=== PATIENT | female | born 1990 | race Two or more races ===

== ENCOUNTER 2018-12-18 05:15 | Emergency (ER) | payer SELFPAY ==
[2018-12-18] MEDS ORDERED: AMOXICILLIN TRIHYDRATE 500 MG CAPSULE PO ONE (08:38)
[2018-12-18] MEDS ORDERED: NEOMY SULF/POLYMYX B SULF/HC OTIC SUSP 10 ML AD ONE (08:39)
[2018-12-18] MEDS ORDERED: HYDROCODONE/ACETAMINOPHEN 5-325 MG TABLET PO ONE (08:39)
[2018-12-18 09:00] VITALS: BP 122/78
--- NOTE | 2018-12-18 09:16 | ER Document Report ---
Entered by BHUMI PARTIDA SCRIBE 12/18/18 0847 Acting as scribe for:ANNIA EAST MD ED General - General Chief Complaint: Drainage from Ear Stated Complaint: EAR PAIN AND DISCHARGE Time Seen by Provider: 12/18/18 08:30 Primary Care Provider: ANDREY LYLES CNM [NO LOCAL MD] - 12/21/18 Mode of Arrival: Ambulatory Information source: Patient Notes: Patient is a 28-year-old female, approximately 8 weeks , presents emergency department complaining of right ear pain yesterday morning. Patient states the pain began as a pulsing, throbbing sensation that worsened throughout the day. She states around 0000 this morning, she felt a pop in her right ear when she yawned. Around 0300, she noted bloody drainage. She states the pain is exacerbated with coughing. She denies using any Q-tips but reports using a cotton ball to prevent air going into her right ear. Patient is on vitamins and is following up with the health department. TRAVEL OUTSIDE OF THE [place] IN LAST 30 DAYS: No - Related Data Allergies/Adverse Reactions: No Known Allergies Allergy (Verified 12/18/18 08:57) Past Medical History - General Information source: Patient - Social History Smoking Status: Never Smoker Cigarette use (# per day): No Chew tobacco use (# tins/day): No Smoking Education Provided: No Frequency of alcohol use: None Drug Abuse: None Occupation: unemployed Lives with: Spouse/Significant other Family History: Reviewed & Not Pertinent - Medical History Medical History: Negative Surgical Hx: Negative Review of Systems - Review of Systems Constitutional: No symptoms reported EENT: See HPI, Ear pain, Ear discharge Cardiovascular: No symptoms reported Respiratory: No symptoms reported Gastrointestinal: No symptoms reported Genitourinary: No symptoms reported Female Genitourinary: - 8 weeks on vitamins with iron, followed at the health department Musculoskeletal: No symptoms reported Skin: No symptoms reported Hematologic/Lymphatic: No symptoms reported Neurological/Psychological: No symptoms reported -: Yes All other systems reviewed and negative Physical Exam - Vital signs Vitals: Temp Pulse Resp BP Pulse Ox 98 F 88 16 112/63 97 12/18/18 05:16 12/18/18 05:16 12/18/18 05:16 12/18/18 05:16 12/18/18 05:16 - Notes Notes: GENERAL: Alert, interacts well. No acute distress. HEAD: Normocephalic, atraumatic. EYES: Pupils equal, round, and reactive to light. Extraocular movements intact. ENT: Oral mucosa moist, tongue midline. Nares patent, no nasal septal hematoma, Left TM and ear canal appear normal. There is dry crusting on the right outer ear and in the canal which also appears wet. Right TM is dusky in appearance, bulging, there appears to be blood in the TM itself. Tender to manipulate the right external ear. NECK: Full range of motion. Supple. Trachea midline. LUNGS: Clear to auscultation bilaterally, no wheezes, rales, or rhonchi. No respiratory distress. HEART: Regular rate and rhythm. No murmurs, gallops, or rubs. ABDOMEN: Soft, non-tender. Non-distended. Bowel sounds present in all 4 quadrants. No guarding, rigidity, or rebound. EXTREMITIES: Moves all 4 extremities spontaneously. NEUROLOGICAL: Alert and oriented x3. Normal speech. PSYCH: Normal affect, normal mood. SKIN: Warm, dry, normal turgor. No rashes or lesions noted. Course - Vital Signs Vital signs: Temp Pulse Resp BP Pulse Ox 98.9 F 85 18 122/78 99 12/18/18 08:59 12/18/18 08:59 12/18/18 08:59 12/18/18 08:59 12/18/18 08:59 Discharge - Discharge Clinical Impression: Right otitis media with spontaneous rupture of eardrum Condition: Stable Disposition: HOME, SELF-CARE Additional Instructions: Otitis Media You have a middle ear infection (otitis media). This is usually a complication of a cold or sore throat. The middle ear cavity becomes filled with infection. Pressure and stretching of the ear drum cause pain. Antibiotics are required. A 10 day course is usually prescribed. A decongestant may be recommended if you have a "runny nose." You may need anesthetic drops or other pain medication. A follow-up exam may be recommended to make sure the infection has completely cleared. If the ear begins to drain, it means the ear drum has ruptured. This will usually heal spontaneously. However, it means you should keep the ear dry until re-examined by a doctor. Call the physician or return for examination at once if there is severe headache, stiff neck, confusion, increasing fever, or dizziness. You should improve significantly within two days. If you're not better, call the doctor. Your history and physical exam suggest that you have a right middle ear infection called otitis media. It also appears that the pressure buildup because the tympanic membrane or eardrum, to pop a small hole in it allowing some of the fluid to run out during the night. Take the medications as prescribed. Put 4 drops of the eardrops you were given in your right ear every [address] hours, then [address] a cotton ball in the ear to help keep the drops in. Take an uifv-vfx-lkoekjr medication such as Sudafed, Claritin, or Caitie to help with the congestion in the ear. Follow-up with a primary care provider on Friday to recheck your ear. RETURN TO THE EMERGENCY ROOM IF ANY NEW OR WORSENING SYMPTOMS. Prescriptions: Amoxicillin Trihydrate [Amoxil 500 mg Capsule] 500 mg PO TID #30 cap Hydrocodone/Acetaminophen [[place] 5-325 mg Tablet] 1 tab PO Q4 PRN #10 tablet PRN Reason: Referrals: ANDREY LYLES CNM [NO LOCAL MD] - 12/21/18 Scribe Attestation: 12/18/18 08:40 I personally performed the services described in the documentation, reviewed and edited the documentation which was dictated to the scribe in my presence, and it accurately records my words and actions. I personally performed the services described in the documentation, reviewed and edited the documentation which was dictated to the scribe in my presence, and it accurately records my words and actions.
== END 2018-12-18 09:00 | disposition home or self-care (01) ==
LOC: ER 05:15
DX: O26.891 Other specified pregnancy related conditions, first trimester (principal); H66.90 Otitis media, unspecified, unspecified ear; H72.91 Unspecified perforation of tympanic membrane, right ear; Z3A.08 8 weeks gestation of pregnancy; Z79.899 Other long term (current) drug therapy
CPT/HCPCS: 99282; J3490

== ENCOUNTER → 2018-12-23 | Outpatient (CLI) | payer SELFPAY ==
--- NOTE | 2018-12-23 13:39 | RADIOLOGY REPORT (SQ) ---
EXAM DESCRIPTION: U/S [id number] TRNABD 1GES W/ODOP COMPLETED DATE/TIME: 12/23/2018 1:22 pm REASON FOR STUDY: Z34.81 ENCOUNTER FOR SUPRVSN OF NORMAL , FIRST TRIMESTER Z34.81 ENCOUNTE R FOR SUPRVSN OF NORMAL , FIRST TRIM COMPARISON: None. TECHNIQUE: Transvaginal static and realtime grayscale images acquired of the pelvis. Additional demetrius cted spectral and color Doppler images recorded. All images stored on PACs. bHCG: Not available. CLINICAL DATES: 8 week 5 day LIMITATIONS: None. FINDINGS: FETUS: Single Living intrauterine . ULTRASOUND EGA: 7 week 2 day ULTRASOUND MALACHI: 08/09/2019 EFW: Not applicable less than 20 weeks. CRL: 1.17 cm. FHR: 157 beats per minute. SURVEY: Too early to assess. AMNIOTIC FLUID: Adequate amount. PLACENTA: Not yet developed due to early gestation. SUBCHORIONIC BLEED: No. SIZE OF BLEED: Not applicable. UTERUS: No masses. No anomalies. CERVICAL LENGTH: 2.8 cm. Closed. RIGHT ADNEXA: Ovary not identified due to poor acoustical window. No adnexal free fluid. No adnexal masses. LEFT ADNEXA: Ovary not identified due to poor acoustical window. No adnexal free fluid. No adnexal masses. FREE FLUID: None. OTHER: No other significant finding. IMPRESSION: LIVING INTRAUTERINE . EGA 7 week 2 day Trimester of : First - 0 to 13 weeks. TECHNICAL DOCUMENTATION: JOB ID: [id number] [employer]- All Rights Reserved Reading location - IP/workstation name: [email or web address]
== END ==
LOC: RAD 12:26
PROVIDERS: ATTEND Midwife
DX: Z34.81 Encounter for supervision of other normal pregnancy, first trimester (principal)
CPT/HCPCS: 76801

== ENCOUNTER → 2019-03-31 | Outpatient (CLI) | payer SELFPAY ==
--- NOTE | 2019-03-31 14:30 | RADIOLOGY REPORT (SQ) ---
EXAM DESCRIPTION: U/S OB 14+ TRNABD 1GES W/O DOP COMPLETED DATE/TIME: 03/31/2019 2:05 pm REASON FOR STUDY: Z34.82 ENCOUNTER FOR SUPRVSN OF NORMAL , SECOND TRIMESTER Z34.82 ENCOUNT ER FOR SUPRVSN OF NORMAL , SECOND TRI COMPARISON: 03/18/2019 TECHNIQUE: Static and Dynamic grayscale imaging performed of gravid uterus using transabdominal appr oach. Additional selected color Doppler and spectral images recorded. All stored on PACS. LIMITATIONS: None. FINDINGS: FETUSES SEEN:1 EGA: 21 weeks and 6 days Calculated using BPD,FL,HC,AC documented on images. Concordant with clinica l dates. MALACHI: 08/05/2019 EFW: 417 +/- 70 grams ANAIS: Adequate fluid volume. PLACENTA: Anterior. PRESENTATION: Breech. ANATOMY: HEART RATE: 141 beats per minute. FOUR CHAMBER HEART: Visualized. THREE VESSEL CORD: Yes. CORD INSERTION: Visualized. KIDNEYS AND BLADDER: Visualized. Appear normal. STOMACH: Visualized. Appears normal. SPINE: Visualize. Appears normal. CERVICAL LENGTH: 3.4 cm Closed. OTHER: No other finding. IMPRESSION: LIVING INTRAUTERINE . ESTIMATED GESTATIONAL AGE 21 weeks and 2 days based on LMP. NO VISUALIZED ANOMALIES. Trimester of : Second trimester - 13 weeks 1 day to 27 weeks 6 days. TECHNICAL DOCUMENTATION: JOB ID: [id number] [employer]- All Rights Reserved Reading location - IP/workstation name: [email or web address]
== END ==
LOC: RAD 12:55
PROVIDERS: ATTEND Midwife
DX: Z34.82 Encounter for supervision of other normal pregnancy, second trimester (principal)
CPT/HCPCS: 76805

== ENCOUNTER 2019-07-22 00:33 | Outpatient (CLI) | payer SELFPAY ==
[2019-07-22 01:13] LABS: APPEARANCE,URINE CLEAR; BILIRUBIN,URINE NEGATIVE (NEGATIVE); COLOR,URINE STRAW; GLUCOSE, URINE NEGATIVE (NEGATIVE); KETONES,URINE NEGATIVE (NEGATIVE); LEUKOCYTE ESTERASE,URINE NEGATIVE (NEGATIVE); NITRITE,URINE NEGATIVE (NEGATIVE); PROTEIN,URINE NEGATIVE (NEGATIVE); URINE SPECIFIC GRAVITY 1.011; UROBILINOGEN,URINE NEGATIVE mg/dL (<2.0)
[2019-07-22 01:33] LABS: URINE AMPHETAMINES SCREEN NEGATIVE; URINE BARBITURATES SCREEN NEGATIVE; URINE BENZODIAZEPINES SCREEN NEGATIVE; URINE COCAINE SCREEN NEGATIVE; URINE MARIJUANA (THC) SCREEN NEGATIVE; URINE METHADONE SCREEN NEGATIVE; URINE PHENCYCLIDINE SCREEN NEGATIVE
--- NOTE | 2019-07-22 01:57 | Non Stress Test Report ---
Non Stress Test Datetime Report Generated by CPN: 07/22/2019 01:57 DEMOGRAPHIC EGA NST: 38.6 INDICATION Indication for Study (NST) Other: lc MONITORING Monitor Explained: Monitor Explained; Test Explained; Patient Verbalized Understanding Time on Monitor: 07/22/2019 00:53 Time off Monitor: 07/22/2019 01:13 NST Duration: 20 NST INTERVENTIONS NST Interventions: PO Hydration; Reposition Patient Physician Notified NST: Dr Manrique BABY A: [id number] BABY A Movement : Present Contraction Frequency : 8 FHR Baseline : 135 Accelerations : 15X15 Decelerations : None Variability : Moderate 6-25bpm NST Review: Meets Criteria for Reactive NST NST Review and Verified By : JNiebuhr,RN NST Results: Reactive NST REPORT Report Trigger: Send Report
== END 2019-07-22 01:46 | disposition home or self-care (01) ==
LOC: LC 00:33
PROVIDERS: ATTEND Obstetrics & Gynecology
PROC: 4A1HXCZ Monitoring of Products of Conception, Cardiac Rate, External Approach (ICD-10-PCS; principal; 2019-07-22)
DX: O47.1 False labor at or after 37 completed weeks of gestation (principal); Z3A.38 38 weeks gestation of pregnancy
CPT/HCPCS: 80307; 81005

== ENCOUNTER 2019-08-04 23:46 | Outpatient (CLI) | payer SELFPAY ==
[2019-08-05 00:14] LABS: APPEARANCE,URINE SLIGHTLY-CLOUDY; BILIRUBIN,URINE NEGATIVE (NEGATIVE); COLOR,URINE YELLOW; GLUCOSE, URINE NEGATIVE (NEGATIVE); KETONES,URINE NEGATIVE (NEGATIVE); LEUKOCYTE ESTERASE,URINE LARGE (NEGATIVE); NITRITE,URINE NEGATIVE (NEGATIVE); PROTEIN,URINE 30 mg/dL (NEGATIVE); URINE SPECIFIC GRAVITY 1.013; UROBILINOGEN,URINE NEGATIVE mg/dL (<2.0)
[2019-08-05 00:28] LABS: URINE AMPHETAMINES SCREEN NEGATIVE; URINE BARBITURATES SCREEN NEGATIVE; URINE BENZODIAZEPINES SCREEN NEGATIVE; URINE COCAINE SCREEN NEGATIVE; URINE MARIJUANA (THC) SCREEN NEGATIVE; URINE METHADONE SCREEN NEGATIVE; URINE PHENCYCLIDINE SCREEN NEGATIVE
--- NOTE | 2019-08-05 01:54 | Non Stress Test Report ---
Non Stress Test Datetime Report Generated by CPN: 08/05/2019 01:54 DEMOGRAPHIC Test Number: 2 EGA NST: 39.3 INDICATION Indication for Study (NST) Other: labor check MONITORING Monitor Explained: Monitor Explained; Test Explained; Patient Verbalized Understanding Time on Monitor: 08/05/2019 00:09 Time off Monitor: 08/05/2019 01:27 NST Duration: 78 NST INTERVENTIONS NST Interventions: None Physician Notified NST: Dr Alanis BABY A: [id number] BABY A Movement : Present Contraction Frequency : 10-11 FHR Baseline : 140 Accelerations : 15X15 Decelerations : None Variability : Moderate 6-25bpm NST Review: Meets Criteria for Reactive NST NST Review and Verified By : Sophia Ortiz RN NST Results: Reactive NST REPORT Report Trigger: Send Report
== END 2019-08-05 01:37 | disposition home or self-care (01) ==
LOC: LC 23:46
PROVIDERS: ATTEND Student in an Organized Health Care Education/Training Program
PROC: 4A1HXCZ Monitoring of Products of Conception, Cardiac Rate, External Approach (ICD-10-PCS; principal; 2019-08-04)
DX: O47.1 False labor at or after 37 completed weeks of gestation (principal); Z3A.39 39 weeks gestation of pregnancy
CPT/HCPCS: 59025; 80307; 81005

== ENCOUNTER 2019-08-05 07:53 | Inpatient (IN) | payer SELFPAY ==
[2019-08-05] MEDS ORDERED: MISOPROSTOL 0.2 MG TABLET ONE (08:21)
[2019-08-05] MEDS ORDERED: LIDOCAINE 1% INJ-PF (10 MG/ML) 30 ML SDV ONE (08:21)
[2019-08-05] MEDS ORDERED: OXYTOCIN 10 UNIT/ML VIAL ONE (08:21)
[2019-08-05] MEDS ORDERED: OXYTOCIN/NORMAL SALINE 20 UNIT/1,000 ML RTUINJ ONE (08:21)
[2019-08-05] MEDS ORDERED: RINGERS SOLUTION,LACTATED 1,000 ML IV ONE (08:23)
--- NOTE | 2019-08-05 08:29 | Admission Physical ---
Datetime Report Generated by CPN: 08/05/2019 08:29 CURRENT ADMISSION Chief Complaint: Uterine Contractions Indication for Induction: Not Applicable Admit Impression : Term, Intrauterine ; Active Labor Admit Plan: Admit to Unit; Initiate Labor Protocol ALLERGIES Medication Allergies: No Medication Allergies: No Known Allergies (08/05/2019) Latex: No Latex Allergies OBSTETRICAL HISTORY EDC: 08/09/2019 00:00 : 3 Para: 2 Term: 2 : 0 SAB: 0 IAB: 0 Ectopic: 0 Livin Cesareans: 0 VBACs: 0 Multiple Births: 0 Gestational Diabetes: No Rh Sensitization: No Incompetent Cervix: No LEORA: No Infertility: No ART Treatment: No Uterine Anomaly: No IUGR: No Hx Previous C/S: No Macrosomia: No Hx Loss/Stillborn: No PIH: No Hx : No Placenta Previa/Abruption: No Depression/PP Depression: No PTL/PROM: No Post Hemorrhage: No Current Procedures: Ultrasound Obstetrical History Comments: G1-2009 G2-2011 G3-current SEE RECORDS Alcohol: No Marijuana : No Cocaine: No Other Illicit Drugs: No Cigarettes: Never Smoker. 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 Surgery: No Heart Disease: No Hosp/Surgery: No Autoimmune Disorder: No Anesthetic Complications: No Kidney Disease: No Abnormal Pap Smear: No Neuro/Epilepsy: No Psychiatric Disorders: No Other Medical Diseases: No Hepatitis/Liver Disease: No Significant Family History: No Varicosities/Phlebitis: No Trauma/Violence : No Thyroid Dysfunction: No INFECTIOUS HISTORY Gonorrhea: No Genital Herpes: No Chlamydia: No Tuberculosis: No Syphilis: No Hepatitis: No HIV/AIDS Exposure: No Rash or Viral Illness: No HPV: No PHYSICAL EXAM General: Normal HEENT: Normal Neurologic: Normal Thyroid: Deferred Heart: Normal Lungs: Normal Breast: Deferred Back: Normal Abdomen: Normal Genitourinary Exam: Normal Extremities: Normal DTRs: Deferred Pelvic Type: Adequate Physical Exam Comments: pelvis proven to 7# Vital Signs: Reviewed; Within Normal Limits VAGINAL EXAM Dilatation: 5 Effacement: 100 Station: -1 Contraction Comments: q 4-5 mins MEMBRANES Pooling: Negative Membranes: Bulging FETUS A EGA: 39.3 Monitoring: External US FHR- Baseline: 135 Variability: Minimal - Undetectable to <=5bpm Accelerations: 15X15 Decelerations: Early FHR Category: Category I Estimated Weight (gm): 3150 Presentation: Vertex Admit Comment: active labor, 2 previous vaginal deliveries, failed early 1h gtt-passed 3h x2, seen at health dept. GBS negative, hx asthma as a child. P: admit, routine labor care, anticipates PLANS FOR LABOR AND DELIVERY Labor and Delivery: None Pain Management: Natural; Medications Feeding Preference: Breast Benefit of Breast Feed Discussed: Yes Circumcision: N/A INFORMED CONSENT Assignment: Jana Manrique MD Signature: with User ID: [email or web address] : with User ID: [email or web address]
[2019-08-05 09:46] LABS: ABSOLUTE BASOPHILS # (AUTO) 0.1 10^3/uL (0.0-0.2); ABSOLUTE LYMPHOCYTES (AUTO) 1.2 10^3/uL (0.5-4.7); ABSOLUTE MONOCYTES (AUTO) 0.3 10^3/uL (0.1-1.4); ABSOLUTE NEUT (AUTO) 13.3 10^3/uL (1.7-8.2); BASOPHILS % (AUTO) 0.5 % (0-2); EOSINOPHILS % (AUTO) 0.2 % (0-6); HEMATOCRIT 38.1 % (36.0-47.0); LYMPHOCYTES % (AUTO) 7.8 % (13-45); MEAN CORPUSCULAR HEMOGLOBIN 28.4 pg (27.0-33.4); MEAN CORPUSCULAR HGB CONC 34.1 g/dL (32.0-36.0); MEAN CORPUSCULAR VOLUME 84 fl (80-97); MONOCYTES % (AUTO) 1.9 % (3-13); PLATELET COUNT 160 10^3/uL (150-450); RED BLOOD COUNT 4.57 10^6/uL (3.72-5.28); RED CELL DISTRIBUTION WIDTH 14.5 % (11.5-14.0); SEGMENTED NEUTROPHILS % (AUTO) 89.6 % (42-78); TOTAL CELLS COUNTED % (AUTO) 100 %; WHITE BLOOD COUNT 14.9 10^3/uL (4.0-10.5)
[2019-08-05] MEDS ORDERED: ACETAMINOPHEN WITH CODEINE #3 TABLET PO PRN ×2 (10:20)
[2019-08-05] MEDS ORDERED: OXYTOCIN/NORMAL SALINE 20 UNIT/1,000 ML RTUINJ IV PRN (10:20)
[2019-08-05] MEDS ORDERED: DIPH/PERTUSS(ACELL)/TETANUS VAC/PF 0.5 ML SYR (>=10YO) IM PRN (10:20)
[2019-08-05] MEDS ORDERED: BENZOCAINE/MENTHOL AEROSOL SPRAY 56 ML TOP PRN (10:20)
[2019-08-05] MEDS ORDERED: PSEUDOEPHEDRINE HCL 30 MG TABLET PO PRN (10:20)
[2019-08-05] MEDS ORDERED: ACETAMINOPHEN 650 MG SUPP.RECT PR PRN (10:20)
[2019-08-05] MEDS ORDERED: PROMETHAZINE HCL 25 MG TABLET PO PRN (10:20)
[2019-08-05] MEDS ORDERED: ZOLPIDEM TARTRATE 5 MG TABLET PO PRN (10:20)
[2019-08-05] MEDS ORDERED: MISOPROSTOL 0.2 MG TABLET PR PRN (10:20)
[2019-08-05] MEDS ORDERED: DIBUCAINE 1% OINTMENT 28 GM TP PRN (10:20)
[2019-08-05] MEDS ORDERED: MEASLES,MUMPS&RUBELLA VACC/PF 0.5 ML VIAL SUBCUT PRN (10:20)
[2019-08-05] MEDS ORDERED: PROMETHAZINE HCL 25 MG SUPP.RECT PR PRN (10:20)
[2019-08-05] MEDS ORDERED: PROMETHAZINE HCL INJ 25 MG/1 ML VIAL IV PRN (10:20)
[2019-08-05] MEDS ORDERED: GLYCERIN/WITCH HAZEL LEAF 1 EACH MED..WIPE TP PRN (10:20)
[2019-08-05] MEDS ORDERED: MAGNESIUM HYDROXIDE SUSP 30 ML UDCUP PO PRN (10:20)
[2019-08-05] MEDS ORDERED: DIPHENHYDRAMINE HCL 25 MG CAPSULE PO PRN (10:20)
[2019-08-05] MEDS ORDERED: NA PHOS,M-B/NA PHOS,DI-BA (ADULT) 133 ML ENEMA PR PRN (10:20)
[2019-08-05] MEDS ORDERED: IBUPROFEN 800 MG TABLET ONE (11:12)
[2019-08-05] MEDS: IBUPROFEN 800 MG TABLET PO SCH ×2 (11:15→17:23)
[2019-08-05] MEDS: DOCUSATE SODIUM 100 MG CAPSULE PO SCH (17:23)
[2019-08-05] MEDS: FERROUS SULFATE 325 MG TABLET PO SCH (17:23)
[2019-08-05 20:23] VITALS: BP 119/71
[2019-08-05] MEDS: FAMOTIDINE 20 MG TABLET PO SCH (22:00)
[2019-08-06] MEDS: IBUPROFEN 800 MG TABLET PO SCH ×2 (02:58→09:35)
[2019-08-06 07:04] LABS: HEMATOCRIT 34.5 % (36.0-47.0); HEMOGLOBIN 11.6 g/dL (12.0-15.5); MEAN CORPUSCULAR HEMOGLOBIN 28.5 pg (27.0-33.4); MEAN CORPUSCULAR HGB CONC 33.7 g/dL (32.0-36.0); MEAN CORPUSCULAR VOLUME 84 fl (80-97); PLATELET COUNT 163 10^3/uL (150-450); RED BLOOD COUNT 4.08 10^6/uL (3.72-5.28); RED CELL DISTRIBUTION WIDTH 14.4 % (11.5-14.0); WHITE BLOOD COUNT 14.6 10^3/uL (4.0-10.5)
[2019-08-06] MEDS: DOCUSATE SODIUM 100 MG CAPSULE PO SCH (09:35)
[2019-08-06] MEDS: FERROUS SULFATE 325 MG TABLET PO SCH (09:35)
[2019-08-06] MEDS: FAMOTIDINE 20 MG TABLET PO SCH (09:36)
[2019-08-06] MEDS ORDERED: PRENATAL VITAMIN W DHA CAPSULE PO SCH (10:00)
[2019-08-06] MEDS ORDERED: SENNOSIDES/DOCUSATE 8.6-50 MG 1 EACH TABLET PO SCH (10:00)
--- NOTE | 2019-08-06 10:36 | PDOC DISCHARGE SUMMARY ---
Impression - Admit/DC Date/PCP Admission Date/Primary Care Provider: 08/05/19 08:26 ANDREY LYLES CNM Discharge Date: 08/06/19 - PP Day #1, pt desires to go home today, no complaints, O+, Rubella Immune, - Discharge Diagnosis (1) Normal course Is this a current diagnosis for this admission?: Yes (2) Active labor at term Is this a current diagnosis for this admission?: Yes (3) Normal vaginal delivery Is this a current diagnosis for this admission?: Yes - Additional Information Resuscitation Status: Full Code Discharge Diet: As Tolerated Discharge Activity: Activity As Tolerated, No Lifting Over 10 Pounds, Pelvic Rest Referrals: ANDREY LYLES CNM [Primary Care Provider] - Prescriptions: Ibuprofen [Motrin 800 mg Tablet] 800 mg PO Q8A #60 tablet Home Medications: Prenat 115/Iron Fum/Folic/Dss [ 19 Tablet] 1 tab PO DAILY 08/04/19 Ibuprofen [Motrin 800 mg Tablet] 800 mg PO Q8A #60 tablet 08/06/19 HPI Reason(s) for Admission: Onset of Labor Procedures: Ultrasound Intrapartum Procedure(s): Spontaneous Vaginal Delivery Hospital Course Hospital Course: routine Results Laboratory Results: WBC 14.6 10^3/uL (4.0-10.5) H 08/06/19 06:52 RBC 4.08 10^6/uL (3.72-5.28) 08/06/19 06:52 Hgb 11.6 g/dL (12.0-15.5) L 08/06/19 06:52 Hct 34.5 % (36.0-47.0) L 08/06/19 06:52 MCV 84 fl (80-97) 08/06/19 06:52 MCH 28.5 pg (27.0-33.4) 08/06/19 06:52 MCHC 33.7 g/dL (32.0-36.0) 08/06/19 06:52 RDW 14.4 % (11.5-14.0) H 08/06/19 06:52 Plt Count 163 10^3/uL (150-450) 08/06/19 06:52 Lymph % (Auto) 7.8 % (13-45) L 08/05/19 09:23 [place] % (Auto) 1.9 % (3-13) L 08/05/19 09:23 Eos % (Auto) 0.2 % (0-6) 08/05/19 09:23 Baso % (Auto) 0.5 % (0-2) 08/05/19 09:23 Absolute Neuts (auto) 13.3 10^3/uL (1.7-8.2) H 08/05/19 09:23 Absolute Lymphs (auto) 1.2 10^3/uL (0.5-4.7) 08/05/19 09:23 Absolute Monos (auto) 0.3 10^3/uL (0.1-1.4) 08/05/19 09: Absolute Eos (auto) 0.0 10^3/uL (0.0-0.6) 08/05/19 09: Absolute Basos (auto) 0.1 10^3/uL (0.0-0.2) 08/05/19 09: Seg Neutrophils % 89.6 % (42-78) H 08/05/19 09:23 RPR NONREACTIVE (NONREACTIVE) 08/05/19 09:23 Blood Type O POSITIVE 08/05/19 09:23 Antibody Screen NEGATIVE 08/05/19 09:23 Plan Health Concerns: none Plan of Treatment: d/c to home. f/up with [facility] in 4 wks for PP check Time Spent: Less than 30 Minutes
--- NOTE | 2019-08-10 06:58 | Delivery Summary ---
Del Sum A-C Datetime Report Generated by CPN: 08/10/2019 06:58 DELIVERY PERSONNEL DELIVERY PERSONNEL: [id number] Delivery Doctor:: Jacqueline Castanon CNM Nurse Shagger Certified:: Jacqueline Castanon CNM Labor and Delivery Nurse:: Edda Becker RN Nursery Nurse:: Leeann Wilson RN Nursery Nurse:: Candis Doss RN MATERNAL INFORMATION Delivery Anesthesia: None Medications After Delivery: Pitocin Bolus-Please Comment; Cytotec 1000mcg Per Rectum/Vagina Meds After Delivery Comment: Pitocin 20 units in 1000 ml nss open for bolus Maternal Complications: None Provider Comments: MAMIE VIABLE FEMALE INFANT WITH SPONTANEOUS CRY. CORD DOUBLE CLAMPED AND CUT. SPONTANEOUS INTACT PLACENTA WITH 3VC. NO LACERATIONS. MOTHER AND STABLE IN L_D #1. LABOR SUMMARY EDC: 08/09/2019 00:00 No. Babies in Womb: 1 Attempted: No Labor Anesthesia: None LABOR INFORMATION Reason for Induction: Not Applicable Onset of Labor: 08/05/2019 03:00 Complete Dilatation: 08/05/2019 09:42 Oxytocin: N/A Group B Beta Strep: Negative Steroids Given: None Reason Steroids Not Administered: Not Applicable MEMBRANES Membranes Rupture Method: Artificial Rupture of Membranes: 08/05/2019 09:14 Length of Rupture (hr): 0.80 Amniotic Fluid Color: Clear Amniotic Fluid Amount: Scant Amniotic Fluid Odor: Normal STAGES OF LABOR Stage 1 hr: 6 Stage 1 min: 42 Stage 2 hr: 0 Stage 2 min: 20 Stage 3 hr: 0 Stage 3 min: 9 Total Time in Labor hr: 7 Total Time in Labor min: 11 VAGINAL DELIVERY Episiotomy: None Laceration #1: None Laceration Extension #1: N/A Laceration Repair: Not Applicable Sponge Count Correct: N/A Sharps Count Correct: N/A CSECTION DELIVERY Primary Indication: N/A Secondary Indication: N/A CSection Incidence: N/A Labor: N/A Elective: N/A CSection Incision: N/A BABY A INFORMATION Delivery Date/Time: 08/05/2019 10:02 Method of Delivery: Vaginal Born in Route : No : N/A Forceps: N/A Vacuum Extraction: N/A Shoulder Dystocia : No PRESENTATION/POSITION BABY A Presentation: Cephalic Cephalic Presentation: Vertex Vertex Position: Right Occipital Anterior Breech Presentation: N/A PLACENTA INFORMATION BABY A Placenta Delivery Time : 08/05/2019 10:11 Placenta Method of Delivery: Spontaneous Placenta Status: Delivered SCORES BABY A Heart Rate 1 min: >100 bpm Resp Effort 1 min: Good Cry Reflex Irritability 1 min: Cough or Sneeze or Pulls Away Muscle Tone 1 min: Active Motion Color 1 min: Blue/Pale Resuscitation Effort 1 min: Tactile Stimulation SCORE 1 MIN: 8 Heart Rate 5 min: >100 bpm Resp Effort 5 min: Good Cry Reflex Irritability 5 min: Cough or Sneeze or Pulls Away Muscle Tone 5 min: Active Motion Color 5 min: Body [place], Extremities Blue Resuscitation Effort 5 min: N/A SCORE 5 MIN: 9 INFORMATION BABY A Gestational Age at Delivery: 39.3 Gestational Status: Full Term- 39- 40.6 Weeks Outcome : Liveborn Infant Condition : Stable Sex: Female IDENTIFICATION BABY A Infant Verification Date/Time: 08/05/2019 10:28 ID Band Number: [id number] Mother's Name Verified: Yes Infant RN Verifying Infant: R Eugenio RN Additional Verifying Personnel: S Grant CNA2 WEIGHT/LENGTH BABY A Infant Birthweight (gm): 2990 Weight (lb): 6 Weight (oz): 9 Infant Length (in): 20.00 Infant Length (cm): 50.80 CORD INFORMATION BABY A No. Cord Vessels: 3 Nuchal Cord : N/A Cord Blood Taken: Yes-For Eval (Mom's Blood Type - or O+) Suction: None ASSESSMENT BABY A Infant Complications: None Physical Findings at Delivery: Within Normal Limits Skin to Skin: Yes Skin to Skin Time (min): 60 BABY B INFORMATION : N/A SIGNATURES Assignment: Jana Manrique MD Signature: with User ID: [email or web address] : with User ID: [email or web address] : I was personally available for consultation and serving as supervising physician for the MLP. : I was personally available for consultation and serving as supervising physician for the MLP.
== END 2019-08-06 15:25 | disposition home or self-care (01) | DRG 807 ==
LOC: LC 07:53 → LR 08:26 → 2S 12:49
PROVIDERS: ADMIT Obstetrics & Gynecology; ATTEND Obstetrics & Gynecology
PROC: 10E0XZZ Delivery of Products of Conception, External Approach (ICD-10-PCS; principal; 2019-08-05)
DX: O80 Encounter for full-term uncomplicated delivery (principal); Z37.0 Single live birth; Z3A.39 39 weeks gestation of pregnancy
CPT/HCPCS: 36415; 85025; 85027; 86592; 86850; 86900; 86901; J2590; J3490